=== PATIENT | female | born 1940 | race Hispanic/Latino ===

== ENCOUNTER 2020-06-09 09:10 | Outpatient (CLI) | payer MEDICARE, SELFPAY ==
[2020-06-09 09:26] LABS: Basophils Percent Auto 0.5 % (0.2-1.2); Eosinophils Absolute Auto 0.3 K/mm3 (0-0.3); Eosinophils Percent Auto 4.6 % (0-4.4); Hematocrit 43.8 % (37.0-47.0); Hemoglobin 14.4 g/dL (12.0-15.0); Immature Granulocyte Absolute 0.03 K/mm3 (0.00-0.031); Immature Granulocyte Percent A 0.5 % (0-0.5); Lymphocytes Absolute Auto 2.86 K/mm3 (0.9-3.2); Lymphocytes Percent Auto 45.2 % (18.3-44.2); Mean Corpuscular HGB Conc 32.9 g/dl (32-36); Mean Corpuscular Hemoglobin 28.1 pg (26-34); Mean Corpuscular Volume 85.4 fl (80-100); Mean Platelet Volume 10.2 fl (7.4-10.4); Monocytes Absolute Auto 0.5 K/mm3 (0.1-0.6); Monocytes Percent Auto 7.3 % (2.6-8.5); Neutrophils Absolute Auto 2.7 K/mm3 (1.3-6.7); Neutrophils Percent Auto 41.9 % (45.5-73.1); Platelet Count Result 235 k/mm3 (150-375); Red Blood Count 5.13 M/mm3 (4.2-5.4); Red Cell Distribution Width 14.4 % (11.5-14.5); White Blood Count 6.3 K/mm3 (4.5-10.0)
[2020-06-09 09:40] LABS: Alanine Aminotransferase 28 U/L (4-35); Albumin Level 4.1 g/dL (3.5-5.1); Alkaline Phosphatase 89 U/L (38-126); Anion Gap 4 mmol/L (8-16); Aspartate Amino Transferase 33 U/L (14-36); Bilirubin,Total 0.5 mg/dL (0.2-1.3); Blood Urea Nitrogen 18 mg/dL (7-17); Calcium 9.3 mg/dL (8.4-10.2); Carbon Dioxide 30 mmol/L (22-30); Chloride 103 mmol/L (98-107); Cholesterol 225 mg/dL (0-200); Estimated Glomerular Filt Rate > 60; Glucose 113 mg/dL (65-105); HDL Direct 53 mg/dL; Potassium 4.7 mmol/L (3.4-5.0); Sodium 137 mmol/L (137-145); Triglycerides 142 mg/dL (<150)
[2020-06-09 09:51] LABS: LDL Cholesterol Direct 148 mg/dL
[2020-06-09 10:21] LABS: Hemoglobin A1C 5.6 % (<5.7)
[2020-06-19 06:53] LABS: Vitamin D 1,25 (OH)2 Total 39 pg/mL (18-72); Vitamin D2 1,25 (OH)2 <8 pg/mL; Vitamin D3 1,25 (OH)2 39 pg/mL
== END 2020-06-09 09:11 | disposition home or self-care (01) ==
PROVIDERS: PCP Family Medicine; Visit Provider Family Medicine
DX: E55.9 Vitamin D deficiency, unspecified (principal); R73.09 Other abnormal glucose; E78.2 Mixed hyperlipidemia; M19.019 Primary osteoarthritis, unspecified shoulder
CPT/HCPCS: 36415; 80053; 80061; 82652; 83036; 85025

== ENCOUNTER 2020-07-25 08:41 | Outpatient (CLI) | payer MEDICARE, SELFPAY ==
--- NOTE | ~2020-07-25 | DEXA_ITS ---
Bone Density Report Name: Hortencia Chavez Age: 80 Sex: Female Ethnicity: White Date of : 1940 Indication: postmenopausal; height loss; hysterectomy; Referring Provider: NU CHRIS Study: Bone densitometry was performed. Exam Date: July 25, 2020 Accession number: [id number] Bone Density: Region BMD T-score Z-score Classification AP Spine (L1, L2) 0.935 -0.4 2.1 Normal Femoral Neck (Left) 0.849 0.0 2.3 Normal Total Hip (Left) 0.987 0.4 2.4 Normal Total Hip Bilateral Avg 0.903 -0.3 1.7 Normal Femoral Neck (Right) 0.789 -0.5 1.7 Normal Total Hip (Right) 0.818 -1.0 1.0 Normal World Health Organization criteria for BMD impression classify patients as: Normal (T-score at or above -1.0), Osteopenia (T-score between -1.0 and -2.5), or Osteoporosis (T-score at or below -2.5). 10-year Fracture Risk: FRAX not reported because: All T-scores for Spine Total, Hip Total, Femoral Neck at or above -1.0 Clinical Information Provided by Patient: Has used the following medications: Vitamin D, Calcium Has the following medical conditions: Hysterectomy Patient maximum height was 63 Menopause Age: 49 No regular weight bearing exercise Drinks caffeinated beverages Onset of menses at age 15 Number of children 1 Impression: The patient has normal bone mass. Discussion: BONE DENSITY IS ABOVE THE MINIMUM DESIRABLE LEVEL AT ALL SKELETAL SITES TESTED. This patient?s bone mineral density is above the minimum desirable level (T-score -1.0 or better) at all sites measured. The patient should follow a healthful lifestyle (good nutrition with adequate calcium and vitamin D, and appropriate weight-bearing exercise). Follow-Up: Consider repeating this study in 5 years or sooner if there is some new clinical indication. Reported by: GIOVANNI on 07/25/2020 9:16:00 AM. Reviewed, dictated and finalized at location AAgustin LEMUS
--- NOTE | ~2020-07-25 | MM_ITS ---
EXAMINATION: MM screening laci BI w luiza HISTORY: Screening TECHNIQUE: Craniocaudal and mediolateral oblique 3-D tomosynthesis images were obtained and synthetic 2-D images were generated. CAD analysis was submitted and interpreted. COMPARISON: Comparison to multiple prior studies sequentially, with oldest reviewed study dated 08/11. BREAST PARENCHYMAL COMPOSITION: There are scattered areas of fibroglandular density. FINDINGS: There are developing asymmetries in the medial aspect of both breasts. There is architectur al distortion in the outer aspect of the right breast from previous biopsy. IMPRESSION: 1. Developing bilateral breast asymmetries. 2. Additional mammographic views and possible breast ultrasound are recommended. BI-RADS Category 0: Incomplete: Needs additional imaging evaluation. Reviewed, dictated and finalized at location A. ACE INSTALLER HELPER IMPRESSION: 1. Developing bilateral breast asymmetries. 2. Additional mammographic views and possible breast ultrasound are recommended . BI-RADS Category 0: Incomplete: Needs additional imaging evaluation.
== END 2020-07-25 08:42 | disposition home or self-care (01) ==
LOC: ANHIMG 08:45
PROVIDERS: PCP Family Medicine; Visit Provider Family Medicine
DX: Z12.31 Encounter for screening mammogram for malignant neoplasm of breast (principal); Z78.0 Asymptomatic menopausal state; R92.8 Other abnormal and inconclusive findings on diagnostic imaging of breast
CPT/HCPCS: 77063; 77067; 77080

== ENCOUNTER 2020-08-22 12:44 | Outpatient (CLI) | payer MEDICARE, SELFPAY ==
--- NOTE | ~2020-08-22 | MMUS_ITS ---
EXAMINATION: MM diagnostic mammo BI, US breast BI limited HISTORY: Bilateral breast asymmetries on screening mammogram TECHNIQUE: Additional 3-D tomosynthesis images of the breasts were performed and synthetic 2-D images were generated. CAD analysis was submitted and interpreted. High resolution limited bilateral breast ultrasound was performed. COMPARISON: 07/25/2020, 11/07/2014, 01/25/2014, 08/23/2013, 08/11/2013 FINDINGS: MAMMOGRAPHIC FINDINGS: Right breast: There is a 5 mm oval, circumscribed, equal density mass in the middle third of the inne r breast at the 4:00 location 4 cm from the nipple. Left breast: There is a return to baseline appearance with spot compression of the left breast. ULTRASOUND: Right breast: There is a 4 mm cyst at the 2:00 location 3 cm from the nipple which may correlate with the mammographic finding in question. Left breast: There is an approximately 1.6 x 0.6 cm indistinct hyperechoic area in the left breast at the 10:00 location 6 cm from the nipple with some posterior acoustic shadowing but no evidence of in ternal vascularity. This could reflect minor breast trauma. IMPRESSION: 1. Probably benign bilateral findings of the breasts. 2. Recommend 6 month follow-up bilateral diagnostic mammogram and ultrasound if necessary. BI-RADS category 3, probably benign findings. Reviewed, dictated and finalized at location A. LIGHT INSPECTOR IMPRESSION: 1. Probably benign bilateral findings of the breasts. 2. Recommend 6 month follow-up bilateral diagnostic mammogram and ultrasound if necessary. BI-RADS category 3, probably benign findings.
== END 2020-08-22 12:45 | disposition home or self-care (01) ==
PROVIDERS: PCP Family Medicine; Visit Provider Physician Assistant
DX: R92.8 Other abnormal and inconclusive findings on diagnostic imaging of breast (principal)
CPT/HCPCS: 76642; 77066

== ENCOUNTER 2021-05-09 13:13 | Outpatient (CLI) | payer MEDICARE, SELFPAY ==
[2021-05-09 14:25] LABS: Basophils Percent Auto 0.6 % (0.2-1.2); Eosinophils Absolute Auto 0.2 K/mm3 (0-0.3); Eosinophils Percent Auto 3.6 % (0-4.4); Hematocrit 41.5 % (37.0-47.0); Hemoglobin 13.5 g/dL (12.0-15.0); Immature Granulocyte Absolute 0.02 K/mm3 (0.00-0.031); Immature Granulocyte Percent A 0.4 % (0-0.5); Lymphocytes Absolute Auto 2.15 K/mm3 (0.9-3.2); Lymphocytes Percent Auto 43.5 % (18.3-44.2); Mean Corpuscular HGB Conc 32.5 g/dl (32-36); Mean Corpuscular Hemoglobin 28.3 pg (26-34); Monocytes Absolute Auto 0.3 K/mm3 (0.1-0.6); Monocytes Percent Auto 6.9 % (2.6-8.5); Neutrophils Absolute Auto 2.2 K/mm3 (1.3-6.7); Platelet Count Result 209 k/mm3 (150-375); Red Blood Count 4.77 M/mm3 (4.2-5.4); Red Cell Distribution Width 13.9 % (11.5-14.5); White Blood Count 4.9 K/mm3 (4.5-10.0)
[2021-05-09 14:45] LABS: Alanine Aminotransferase 37 U/L (4-35); Albumin Level 4.4 g/dL (3.5-5.1); Alkaline Phosphatase 78 U/L (38-126); Anion Gap 10 mmol/L (8-16); Aspartate Amino Transferase 38 U/L (14-36); Bilirubin,Total 0.4 mg/dL (0.2-1.3); Blood Urea Nitrogen 18 mg/dL (7-17); Calcium 9.4 mg/dL (8.4-10.2); Carbon Dioxide 23 mmol/L (22-30); Chloride 105 mmol/L (98-107); Cholesterol 209 mg/dL (0-200); Estimated Glomerular Filt Rate > 60; Glucose 168 mg/dL (65-110); HDL Direct 52 mg/dL; Sodium 138 mmol/L (137-145); Triglycerides 150 mg/dL (<150); Uric Acid 5.3 mg/dL (2.5-7.5)
[2021-05-09 14:56] LABS: LDL Cholesterol Direct 141 mg/dL
== END 2021-05-09 13:14 | disposition home or self-care (01) ==
LOC: ANHLAB 13:16
PROVIDERS: PCP Family Medicine; Visit Provider Family Medicine
DX: E78.2 Mixed hyperlipidemia (principal); I10 Essential (primary) hypertension
CPT/HCPCS: 36415; 80053; 80061; 84550; 85025

== ENCOUNTER 2021-06-01 09:09 | Outpatient (CLI) | payer MEDICARE, SELFPAY ==
--- NOTE | ~2021-06-01 | US_ITS ---
US abdomen limited INDICATION: Abnormal levels of serum enzymes PROCEDURE: Realtime right upper abdominal ultrasound. COMPARISON: No prior studies for comparison. FINDINGS: The pancreas is normal without focal mass or pancreatic ductal dilation. Liver echotexture is increased, consistent with fatty infiltration. There is normal directional flow in the portal ve in. The gallbladder is normal without stones, gallbladder wall thickening or pericholecystic fluid. Comm on bile duct measures 5.9 mm. No sonographic Beckford's sign. IMPRESSION: 1: Hepatic steatosis. Reviewed, dictated and finalized at location A. PMENT OILER IMPRESSION: 1: Hepatic steatosis.
== END 2021-06-01 09:10 | disposition home or self-care (01) ==
LOC: ANHIMG 09:13
PROVIDERS: PCP Family Medicine; Visit Provider Nurse Practitioner Gerontology
DX: R74.8 Abnormal levels of other serum enzymes (principal); K76.0 Fatty (change of) liver, not elsewhere classified
CPT/HCPCS: 76705

== ENCOUNTER 2021-09-10 13:52 | Outpatient (CLI) | payer MEDICARE, SELFPAY ==
--- NOTE | 2021-09-10 14:04 | ECG_ITS ---
Measurements Intervals [place] Rate: 80 P: 63 RI: 139 QRS: 48 QRSD: 82 T: 49 QT: 366 QTc: 423 Interpretive Statements SINUS RHYTHM WITHIN NORMAL LIMITS NO PREVIOUS ECG AVAILABLE FOR COMPARISON Electronically Signed On 09-10-2021 14:36:00 CDT by Bogdan Greenwood M.D.
[2021-09-10 14:24] LABS: Basophils Percent Auto 0.5 % (0.2-1.2); Eosinophils Absolute Auto 0.2 K/mm3 (0-0.3); Eosinophils Percent Auto 2.4 % (0-4.4); Hematocrit 42.8 % (37.0-47.0); Hemoglobin 14.1 g/dL (12.0-15.0); Immature Granulocyte Absolute 0.02 K/mm3 (0.00-0.031); Immature Granulocyte Percent A 0.3 % (0-0.5); Lymphocytes Absolute Auto 2.43 K/mm3 (0.9-3.2); Lymphocytes Percent Auto 36.6 % (18.3-44.2); Mean Corpuscular HGB Conc 32.9 g/dl (32-36); Mean Corpuscular Hemoglobin 28.4 pg (26-34); Mean Corpuscular Volume 86.1 fl (80-100); Mean Platelet Volume 10.5 fl (7.4-10.4); Monocytes Absolute Auto 0.6 K/mm3 (0.1-0.6); Monocytes Percent Auto 9.5 % (2.6-8.5); Neutrophils Absolute Auto 3.4 K/mm3 (1.3-6.7); Neutrophils Percent Auto 50.7 % (45.5-73.1); Platelet Count Result 247 k/mm3 (150-375); Red Blood Count 4.97 M/mm3 (4.2-5.4); Red Cell Distribution Width 13.8 % (11.5-14.5); White Blood Count 6.6 K/mm3 (4.5-10.0)
== END 2021-09-10 13:53 | disposition home or self-care (01) ==
LOC: ANHSURGERY 13:57
PROVIDERS: PCP Family Medicine; Visit Provider Orthopaedic Surgery
DX: M25.511 Pain in right shoulder (principal); E78.5 Hyperlipidemia, unspecified; Z01.818 Encounter for other preprocedural examination
CPT/HCPCS: 36415; 85025; 87081; 93005

== ENCOUNTER 2021-10-10 16:02 | Observation (INO) | payer MEDICARE, SELFPAY ==
--- NOTE | 2021-09-10 14:05 | PC.NURSE ---
Report to the Outpatient Waiting Room, entrance under the green pavilion located off [facility], at time _0600_ on date _10/09/21_. OR Time: _0730__. - You and your visitor will be asked a series of questions to screen for COVID 19 for your protection. - A mask is required within the hospital. One visitor will be allowed to accompany the patient into the hospital. Patients visitor will be instructed to remain with patient at all times or leave the building. We will allow the visitor to come back to the postoperative area when patient is ready. Preoperative COVID Testing Requirements: NONE Patients may have clear liquids (water, carbonated beverages, clear teas, apple juice) until 3 hours prior to surgery (0430 AM) with a maximum of 20 ounces. - No food from midnight until time of surgery Take the following medications with a SIP of water the morning of surgery: _NONE_ Medications to discontinue per DR. LAMB - _NONE_ Medications to discontinue per ANESTHESIA - _NONE_ Please no make-up, nail thai, hairspray, perfume, deodorant, or body powder the day of surgery. No jewelry (including any body piercings) or valuables the day of surgery, leave them at home. Please take a shower or bath the night before, or the morning of, surgery with an antibacterial soap. Wear comfortable, loose fitting clothing. - Jewelry must be removed prior to entering the operating room. Rings and piercings that are not removed may be cut off. - The hospital will not accept responsibility for valuables. - Please leave all valuables, including medications, at home the day of surgery. If you are going home after surgery, a licensed vibratory pile driver must drive you home. - NO public transportation without another adult. - We recommend that an adult stay with you for 24 hours following discharge. - We also recommend that you do not drive, make important decision, drink alcoholic beverages, or take any drugs that were not prescribed by your health care provider for at least 24 hours after your discharge time. Follow any additional instructions given to you from your surgeon. Instructions given to ___PT and asked if any additional questions and then verbalized understanding. Patient advised to call surgeon office or pre surgery nurse liaisonSARITA [phone] if any additional questions.
[2021-09-10 14:25] VITALS: BP 142/80; PULSE 80; RESP 18; TEMP 36.7; O2SAT 98; BMI 29.0
--- NOTE | 2021-10-08 12:57 | WPDANESEPPF ---
Anes - Initial Pre Proc Eval Procedure: Operation Date: 10/09/21 07:30 Proposed Procedures p Right Reverse Total Shoulder Arthroplasty - Haris Ronquillo MD Date/Time: 10/08/21 12:57 Surgeon: Haris Ronquillo MD Pre Op Diagnosis: Prim O A Right Shoulder Patient Data Age: 81 Gender: F Height: 1.57 m Weight: 72 kg Last Vital Signs Temp 36.7 C 09/10/21 14:25 Pulse 80 09/10/21 14:25 Resp 18 09/10/21 14:25 BP 142/80 H 09/10/21 14:25 Pulse Ox 98 09/10/21 14:25 Allergies Allergy/AdvReac Type Severity Reaction Status Date / Time morphine Allergy Intermediate confusion Verified 10/09/21 06:13 and mouth swelling Penicillins Allergy Intermediate Swollen Verified 10/09/21 06:13 mouth Home Medications Medication Instructions Recorded Confirmed Type omeprazole 40 mg capsule,delayed 40 mg PO DAILY #90 cap 09/10/21 10/09/21 Rx release Patient hx anesthesia problems: none Family hx anesthesia problems: none Results Review: All pre-operative results and documents have been reviewed as part of the pre-operative evaluation. 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 GERD (gastroesophageal reflux disease) Hyperlipidemia Low back pain Osteoporosis screening Shoulder pain, right Surgical History Surgical History H/O breast biopsy History of hysterectomy (~11/1981) Hx of total knee arthroplasty (~06/2008) R - failed Family History Family History Father Cerebrovascular accident, Onset Age: 62 Patient's father is Social History Social History Social History: Smoking status: Never smoker Second hand tobacco smoke exposure: No Additional smoking assessment comments: PT DENIES ALL FORMS OF TOBACCO USE Alcohol intake: never Substance use: never Substance use type: does not use Living arrangements: with family Additional living arrangements comments: Pt lives with her daughter Gender identity (if verbalized by the patient): Female Sexual Orientation (if Verbalized by the Patient): Straight or Heterosexual Spiritual care concerns: No Anes - Eval Final PreProcedure Day of Procedure 10/08/21 12:57 Patient weight: overweight Heart: regular rate and rhythm Lungs: clear to auscultation and normal air movement Airway: Mallampati scale class II Neurological: alert and oriented Last oral intake: >/= 8 hours ASA classification: II Emergent: no Anesthetic plan: proceed Anesthesia type and monitoring: general ETT and standard monitoring Results Review: All pre-operative results and documents have been reviewed as part of the pre-operative evaluation. Informed Consent: The patient's anesthetic plan and its attendant risks and benefits were discussed with the patient/family/POA. Questions were solicited and answers provided to the satisfaction of the patient/family/POA.
--- NOTE | 2021-10-08 12:58 | WPDANESPNB ---
Anes - Peripheral Nerve Block Date/Time: 10/08/21 12:58 I have discussed with the patient/family/POA the placement of a peripheral nerve block for post-operative pain management, including associated risks, benefits, complications, and side effects. Alternative methods of post-operative analgesia were detailed. Questions were solicited and answers provided to the satisfaction of the patient/family/POA. Time-Out: A pre-procedural Time-Out was completed immediately before starting the procedure and confirmed: Patient Identification, Site, Procedure, Patient Position and the Availability of Requisite Equipment. Clinical Indications: Acute post-operative pain management requested by the operative surgeon. Nerve Block Insertion Note Anes-nerve block: interscalene right Patient position: supine Skin prep: chlorhexidine Needle: 22 gauge, stimulating, insulated echogenic needle. Needle length: 50 mm Technique: ultrasound Injectate: bupivacaine 0.5% with epi 5 mcg/ml (30cc- no epi) Observations: tolerated well Complications: none Procedure start time:: 723 Procedure end time:: 726
[2021-10-09] VITALS (12 sets, daily range): BP systolic 114–148; BP diastolic 47–67; PULSE 66–97; RESP 14–18; TEMP 35.9–37; O2SAT 94–100
[2021-10-09] MEDS: LACTATED RINGERS 1,000 ML 30 ML IV CONT ×2 (06:21→10:31)
[2021-10-09] MEDS: ACETAMINOPHEN 500 MG TABLET 1000 MG PO (06:38)
[2021-10-09] MEDS: TRANEXAMIC ACID 1,000MG/ISO100 1,000 MG/100 ML BAG 200 MG IVPB (06:44)
--- NOTE | 2021-10-09 07:19 | WPDHPUPDATE1 ---
History and Physical Update Update Date/Time: 10/09/21 07:19 History and Physical has been reviewed, including an updated exam of the patient. There are NO changes in the patient's condition. Risks, benefits, and alternatives have been discussed and questions answered. Patient agrees to proceed with procedure.
[2021-10-09] MEDS: ceFAZolin 2 GM/D5W 50 ML 2 GM/50 ML BAG IVPB ×2 (07:29→15:36)
[2021-10-09] MEDS: VANCOMYCIN HCL 1,000 MG VIAL 1000 MG TOPICAL (08:04)
--- NOTE | 2021-10-09 10:28 | W.PM.PROC2 ---
Procedure Note - Detailed Date of Procedure 10/09/21 Pre-op Diagnosis Osteoarthritis right shoulder Post-op Diagnosis Same Procedure Performed Reverse total shoulder arthroplasty, right. Surgeon Haris Ronquillo MD Customs Verifier Olivia Paris PA-C Anesthesia General and Regional (Interscalene block.) Indications Moderate progressive arthritis with history of rotator cuff disease. Progressive pain with ADL's and at night. Findings Small stature. Good bone quality. No significant deformity. Description of Procedure The patient was given an interscalene block in the preoperative area. Preoperative antibiotics were given. The patient was transferred to the operating room and a general anesthetic was administered. The beach chair position was used at 45 degrees. All bony prominences were padded. The head was carefully stabilized on the [employer] head trimmer. A sterile prep and drape was performed in the usual manner with ChloraPrep. A longitudinal incision was created at the anterior shoulder just lateral to the deltopectoral interval. Hydrogen peroxide was placed on the incision and then rinsed after one minute. Careful dissection was performed to expose the interval and protect the cephalic vein. The vein was retracted medially. The upper border of the pectoralis was released. Anterior circumflex vessel branches were suture ligated. The biceps was tenodesed. A subscapularis tenotomy was performed. The inferior capsule was released, exposing the humeral head. Osteophytes were removed. Care was taken to stay on bone to protect the axillary nerve. The anatomic head cut was taken with the oscillating saw. The guide pin was placed, central drilling performed, and the broach trial inserted. The neck anteversion and inclination were carefully assessed. The cut protector was placed, and attention was turned to the glenoid. Retractors were placed. Releases were carried out for exposure. The subscapularis was mobilized, the inferior capsule and long head of triceps released, and the superior and middle glenohumeral ligaments released as well. Labral tissue was resected as needed. The sizing template was used to assess the baseplate position low on the glenoid. A guide pin was placed. Minimal reaming was used to accomplish a flat surface without violating the subchondral bone. Version was corrected according to preoperative templating. The boss was drilled, and the real component was impacted into position. Supplemental locking screws were placed centrally, superiorly, and inferiorly. The glenosphere was impacted into the taper. The proximal humerus was reamed for the inset component. The humeral components were trialed. The real humeral stem, tray, and insert were impacted into position. The shoulder was copiously irrigated periodically with pulsatile lavage. The shoulder was reduced and stability confirmed. 1 gram of Vancomycin powder was placed in the joint. The subscapularis tenotomy was repaired. The biceps tenodesis was incorporated with the pectoralis tendon repair. The deltopectoral space was reapproximated with number 1 Vicryl. The remaining tissue was closed with 0 Quill and 2-0 Quill running suture and steri-strips. A sterile silver occlusive dressing and shoulder immobilizer were placed. The patient was transferred to the recovery room. Physician graduate research assistant, Olivia Paris PA-C, required for surgery; including patient positioning, draping, tissue retraction, maintaining instrument position, wound closure, and dressing placement. Implants Shoulder Innovations reverse TSA size 0 stem. +0 polyethylene insert. Standard baseplate. 33 +6 lateralized glenosphere. Estimated Blood Loss -100.0 Drains No Pathology None sent Complications No immediate complications Condition Stable Disposition PACU
--- NOTE | 2021-10-09 11:31 | PC.NURSE ---
This patient, Hortencia Chavez, was admitted to Medical Room 252-01. Patient/family oriented to hospital policies and general routines including ID bracelet, bed and alarms, visiting hours, pain management, procedures, bathroom and other care routines, personal items, smoking policy, room service/diet, and visiting hours. Information on how to activate the Rapid Response Team has been discussed. Patient/Family are encouraged to report perceived risks to care and to ask questions if they do not understand what they are told or what they should do.
[2021-10-09] MEDS: SODIUM CHLORIDE 0.9% IV 1,000 ML 125 ML IV CONT (11:56)
[2021-10-09] MEDS: MELOXICAM 7.5 MG TABLET PO (16:26)
[2021-10-09] MEDS: SENNA/DOCUSATE SODIUM TABLET 2 TAB PO (16:26)
[2021-10-09] MEDS: ASPIRIN 81 MG ENTERIC TABLET PO (16:26)
[2021-10-09] MEDS: oxyCODONE HCL (*CRX) 5 MG TAB IR 10 MG PO (20:22)
[2021-10-10] VITALS (8 sets, daily range): BP systolic 105–144; BP diastolic 45–57; PULSE 76–94; RESP 16–20; TEMP 36.4–36.9; O2SAT 92–97
--- NOTE | ~2021-10-10 | XR_ITS ---
EXAMINATION: XR shoulder RT min 2V EXAM DATE: 10/09/2021 10:17 INDICATION: Right shoulder arthroplasty. TECHNIQUE: Frontal and lateral projections of the right shoulder. Comparison is made to prior examin ation from 06/01/2021. FINDINGS: There is right shoulder reversed arthroplasty hardware in expected position. Small amount of postoperative subcutaneous gas and gas within the shoulder joint. Correlate with procedure note. IMPRESSION: Status post right shoulder arthroplasty. Reviewed, dictated and finalized at location B.
[2021-10-10] MEDS: ceFAZolin 2 GM/D5W 50 ML 2 GM/50 ML BAG IVPB ×2 (01:00→07:56)
[2021-10-10] MEDS: oxyCODONE HCL (*CRX) 5 MG TAB IR 10 MG PO ×3 (02:30→20:51)
--- NOTE | 2021-10-10 08:00 | PM.PNORT ---
Progress Note: A&P Assessment and Plan (1) Status post reverse total arthroplasty of right shoulder: Code(s): Z96.611 - Presence of right artificial shoulder joint Status: Acute Assessment and Plan: Postop day 1:Right reverse total shoulder. Patient was unable to urinate after surgery. After a bladder scan, Guzman catheter in place. Spoke with the nurse multiple times throughout the day. Will trial catheter removal today. Also she had trouble with pain control. Will need to stay another night for pain control and until she is able to void. Subjective Subjective Date/Time Seen: 10/10/21 08:00 Patient was having urinary issues yesterday and a Guzman catheter was placed. Patient having significant pain difficult to control. Exam Narrative: Normal weight 81 y/o Female. Resting comfortably in chair. Wearing sling. Dressing dry and intact with no drainage. Moderate swelling. No ecchymosis. No erythema. No hematoma. Range of motion limited due to pain. Neurologic status intact. No varicosities. Distal pulses palpable. Guzman catheter in place. Objective Data Vital Signs Vital Signs: Vital Signs - 24 hr 10/10/21 09:56 10/10/21 14:15 10/10/21 17:53 Temperature 98 F 98.4 F 98.1 F Pulse Rate 86 94 90 Respiratory Rate 20 16 18 Blood Pressure 139/50 L 144/47 H 122/45 L Pulse Oximetry 93 92 94 10/10/21 20:00 10/10/21 20:58 10/10/21 21:33 Temperature 98.1 F Pulse Rate 90 86 Respiratory Rate 18 18 Blood Pressure 132/47 L Pulse Oximetry 94 95 95 10/11/21 02:00 10/11/21 06:02 Temperature 97.8 F 97.7 F Pulse Rate 100 95 Respiratory Rate 18 18 Blood Pressure 134/44 L 108/45 L Pulse Oximetry 96 97 Intake/Output Intake/Output: Intake & Output 10/08/21 10/09/21 10/10/21 10/11/21 23:59 23:59 23:59 23:59 Intake Total 2080 1240 Output Total 750 1450 Balance 1330 -210 Meds/Results Medications: Active Medications Generic Name Dose Route Start Last Admin Trade Name Freq PRN Reason Stop Dose Admin Acetaminophen 1,000 mg 10/09/21 11:06 Acetaminophen 500 Mg Tablet PO Q6H PRN Pain Rated 1-3 Aspirin 81 mg 10/09/21 17:00 10/10/21 16:19 Aspirin 81 Mg Enteric Tablet PO 81 mg BID ALLA Administration Cyclobenzaprine HCl 10 mg 10/09/21 11:06 Cyclobenzaprine Hcl 10 Mg Tablet PO Q8H PRN Spasms Diphenhydramine HCl 25 mg 10/09/21 11:06 Diphenhydramine Hcl Inj 50 Mg/Ml Vial IV PUSH Q6H PRN Itching Meloxicam 7.5 mg 10/09/21 17:00 10/10/21 16:19 Meloxicam 7.5 Mg Tablet PO 7.5 mg BID ALLA Administration Naloxone HCl 0.1 mg 10/09/21 11:06 Naloxone Hcl 0.4 Mg/Ml Vial IV PUSH Q2M PRN Opiate Reversal Ondansetron HCl 4 mg 10/09/21 11:06 10/10/21 13:21 Ondansetron Inj 4 Mg/2 Ml Vial IV PUSH 4 mg Q4H PRN Administration Nausea And Vomiting Oxycodone HCl 5 mg 10/09/21 11:06 Oxycodone Hcl (*Crx) 5 Mg Tab Ir PO Q4H PRN Pain Rated 4-6 Oxycodone HCl 10 mg 10/09/21 11:06 10/10/21 20:51 Oxycodone Hcl (*Crx) 5 Mg Tab Ir PO 10 mg Q4H PRN Administration Pain Rated 7-10 Pantoprazole Sodium 40 mg 10/10/21 17:00 10/10/21 16:20 Pantoprazole 40 Mg Tablet PO 40 mg BID ALLA Administration Polyethylene Glycol 17 gm 10/10/21 09:00 10/10/21 08:09 Polyethylene Glycol 3350 17 Gm Powd.Pack PO 17 gm QAM ALLA Administration Senna/Docusate Sodium 2 tab 10/09/21 17:00 10/10/21 16:19 Senna/Docusate Sodium Tablet PO 2 tab BID ALLA Administration Radiology Results: ITS Impressions Shoulder X-Ray 10/09/21 10:18 IMPRESSION: Status post right shoulder arthroplasty.
[2021-10-10] MEDS: MELOXICAM 7.5 MG TABLET PO ×2 (08:09→16:19)
[2021-10-10] MEDS: ASPIRIN 81 MG ENTERIC TABLET PO ×2 (08:09→16:19)
[2021-10-10] MEDS: polyethylene glycoL 3350 17 GM POWD.PACK PO (08:09)
[2021-10-10] MEDS: SENNA/DOCUSATE SODIUM TABLET 2 TAB PO ×2 (08:09→16:19)
[2021-10-10] MEDS: ONDANSETRON INJ 4 MG/2 ML VIAL IV PUSH (13:21)
--- NOTE | 2021-10-10 15:04 | PC.NURSE ---
Called Dr. Ronquillo office to inform that patients blood pressure was 144/47, was told to check again in 30min and Dimas the PA will call me back. Checked BP and was 142/47. Awaiting call from PA.
[2021-10-10] MEDS: PANTOPRAZOLE 40 MG TABLET PO (16:20)
--- NOTE | 2021-10-10 17:38 | PC.NURSE ---
Patient has not voided since romo was removed this morning. Dr. Ronquillo new order to bladder scan, and either straight cath, then straight cath PRN throughout the night or to insert romo cath, whichever the patient is ok with.
--- NOTE | 2021-10-10 18:23 | PC.NURSE ---
Patient bladder scanned 435ml, used restroom voided 150ml, post bladder scan was 250. Patient requests to hold off on straight cath and catheter because feels she may be able to void more after drinking more water and may not need either.
[2021-10-11 02:00] VITALS: BP 134/44; PULSE 100; RESP 18; TEMP 36.6; O2SAT 96
[2021-10-11 06:02] VITALS: BP 108/45; PULSE 95; RESP 18; TEMP 36.5; O2SAT 97
--- NOTE | 2021-10-11 07:36 | PM.DS ---
DS: Admitting Diagnosis Discharge Date 10/11/21 Admitting Diagnosis Right shoulder OA. DS: Discharge Diagnosis Discharge Diagnosis (1) Status post reverse total arthroplasty of right shoulder: Code(s): Z96.611 - Presence of right artificial shoulder joint Status: Acute Assessment and Plan: Postop day 1: Right reverse total shoulder arthroplasty. Patient tolerated procedure well. Did have urinary issues, a Guzman catheter was inserted, and she was unable to void on her own until last evening. Did have some pain control issues also. Pain manageable with pain medication today. No numbness or tingling. We had a lengthy discussion regarding postoperative wound care, limitations, expectations, and exercises. Patient shows good understanding. He has had initial physical therapy and is tolerating it well. DVT prophylaxis: 81 mg baby aspirin b.i.d. for 14 days. Short frequent walks. Compression socks. Pain medication: Percocet. Meloxicam. Patient has followup appointment with Dr. Ronquillo in 3 weeks. DS: Summary Hospital Course Hospital Course: Has had initial PT/OT. Had issues urinating and Guzman was placed. Was able to void on her own last night. Status at Discharge Functional status at discharge: independent ambulation Overall status at discharge: patient is progressing back to baseline Time Spent with Patient Time attestation: Total time spent providing and/or coordinating discharge services: Exam Narrative: Normal weight 81 y/o Female. Resting comfortably in chair. Wearing sling. Dressing dry and intact with no drainage. Moderate swelling. No ecchymosis. No erythema. No hematoma. Range of motion limited due to pain. Neurologic status intact. No varicosities. Distal pulses palpable. Discharge Plan Discharge Attending physician on discharge: Haris Ronquillo Discharging Clinician: Wellington Anticipated Discharge Date/Time: 10/11/21 07:31 Patient Disposition: Home, Self-Care Activity: may shower Diet: as tolerated Wound Care Instructions: follow printed instructions Discharge Instructions: See green instruction sheet. Stand Alone Forms: General Discharge Instructions Follow-up/Referrals: Olivia Paris PA [Physician Terrapin Fisher] - Discharge Medications: New meloxicam 15 mg tablet 15 mg PO DAILY Qty: 30 RF: 0 oxycodone-acetaminophen 5-325 mg tablet 1 - 2 tablet PO Q4-6H MDD 6 PRN (Reason: pain) Qty: 30 RF: 0 aspirin 81 mg tablet,delayed release (DR/EC) 81 mg PO BID 14 Days Qty: 28 RF: 0 Continued omeprazole 40 mg capsule,delayed release(DR/EC) 40 mg PO DAILY Qty: 90 RF: 3 Date of admission: 10/10/21 16:02 Primary Care Provider: Ольга Cotton Admitting Provider: Haris Ronquillo Attending physician on admission: Haris Ronquillo Condition: Stable
[2021-10-11] MEDS: polyethylene glycoL 3350 17 GM POWD.PACK PO (09:41)
[2021-10-11] MEDS: SENNA/DOCUSATE SODIUM TABLET 2 TAB PO (09:45)
[2021-10-11] MEDS: PANTOPRAZOLE 40 MG TABLET PO (09:47)
[2021-10-11] MEDS: ASPIRIN 81 MG ENTERIC TABLET PO (09:47)
[2021-10-11] MEDS: MELOXICAM 7.5 MG TABLET PO (09:48)
--- NOTE | 2021-10-11 10:06 | PC.NURSE ---
On 10/11/21, the students, [Trini Jesus, Shakeel Lozano], provided care and completed [facility] documentation on this patient. I have reviewed the students' documentation and agree with the findings.
[2021-10-11 10:15] VITALS: BP 127/51; PULSE 93; RESP 16; TEMP 36.7; O2SAT 97
== END 2021-10-11 11:29 | disposition home or self-care (01) ==
LOC: ANHSURGERY 16:04 → ANH2MED 16:04
PROVIDERS: Admitting Provider Orthopaedic Surgery; PCP Family Medicine; Visit Provider Orthopaedic Surgery
PROC: (CPT 23472; principal; 2021-10-09 07:30)
DX: M19.011 Primary osteoarthritis, right shoulder (principal); G89.18 Other acute postprocedural pain; K21.9 Gastro-esophageal reflux disease without esophagitis; E78.5 Hyperlipidemia, unspecified; M54.50 Low back pain, unspecified; R26.9 Unspecified abnormalities of gait and mobility; R39.198 Other difficulties with micturition; T84.09 Other mechanical complication of internal joint prosthesis
CPT/HCPCS: 23472; 64415; 36415; 73030; 86850; 86900; 86901; 97110; 97161; 97165; 97530; 97535; A4565; A9270; G0378; J0131; J0171; J0690; J1885; J2250; J2405; J2704; J2795; J3010; J3370; J7030; J7120

== ENCOUNTER 2022-09-03 10:11 | Outpatient (CLI) | payer MEDICARE, SELFPAY ==
[2022-09-03 10:32] LABS: Basophils Absolute Auto 0.1 K/mm3 (0.0-0.1); Basophils Percent Auto 0.8 % (0.2-1.2); Eosinophils Absolute Auto 0.3 K/mm3 (0-0.3); Eosinophils Percent Auto 4.4 % (0-4.4); Hematocrit 42.2 % (37.0-47.0); Hemoglobin 13.7 g/dL (12.0-15.0); Immature Granulocyte Absolute 0.01 K/mm3 (0.00-0.031); Immature Granulocyte Percent A 0.2 % (0-0.5); Lymphocytes Absolute Auto 2.52 K/mm3 (0.9-3.2); Lymphocytes Percent Auto 40.6 % (18.3-44.2); Mean Corpuscular HGB Conc 32.5 g/dl (32-36); Mean Corpuscular Volume 86.3 fl (80-100); Mean Platelet Volume 10.4 fl (7.4-10.4); Monocytes Absolute Auto 0.5 K/mm3 (0.1-0.6); Monocytes Percent Auto 7.3 % (2.6-8.5); Neutrophils Absolute Auto 2.9 K/mm3 (1.3-6.7); Neutrophils Percent Auto 46.7 % (45.5-73.1); Platelet Count Result 217 k/mm3 (150-375); Red Blood Count 4.89 M/mm3 (4.2-5.4); Red Cell Distribution Width 14.6 % (11.5-14.5); White Blood Count 6.2 K/mm3 (4.5-10.0)
[2022-09-03 10:43] LABS: Alanine Aminotransferase 40 U/L (6-35); Albumin Level 4.3 g/dL (3.5-5.1); Alkaline Phosphatase 84 U/L (38-126); Anion Gap 7 mmol/L (8-16); Aspartate Amino Transferase 39 U/L (14-36); Bilirubin,Total 0.7 mg/dL (0.2-1.3); Blood Urea Nitrogen 17 mg/dL (7-17); Calcium 8.9 mg/dL (8.4-10.2); Carbon Dioxide 24 mmol/L (22-30); Chloride 102 mmol/L (98-107); Cholesterol 237 mg/dL (0-200); Estimated Glomerular Filt Rate > 60; Glucose 99 mg/dL (65-110); HDL Direct 49 mg/dL; Potassium 4.1 mmol/L (3.4-5.0); Sodium 133 mmol/L (137-145); Triglycerides 139 mg/dL (<150)
[2022-09-03 10:54] LABS: LDL Cholesterol Direct 139 mg/dL
== END 2022-09-03 10:12 | disposition home or self-care (01) ==
PROVIDERS: PCP Family Medicine; Visit Provider Family Medicine
DX: E78.2 Mixed hyperlipidemia (principal)
CPT/HCPCS: 36415; 80053; 80061; 85025

== ENCOUNTER 2023-03-29 08:16 | Outpatient (CLI) | payer MEDICARE, SELFPAY ==
--- NOTE | ~2023-03-29 | DEXA_ITS ---
Bone Density Report Name: BERNIE TREJO Age: 83 Sex: Female Ethnicity: White Date of : 1940 Indication: postmenopausal; screening for osteoporosis; height loss; hysterectomy; Referring Provider: NU CHRIS Study: Bone densitometry was performed. Exam Date: March 29, 2023 Accession number: [id number] Bone Density: Region BMD T-score Z-score Classification AP Spine(L1-L4) 1.207 1.5 4.2 Normal Femoral Neck (Left) 0.794 -0.5 1.9 Normal Total Hip (Left) 0.939 0.0 2.1 Normal Femoral Neck (Right) 0.749 -0.9 1.5 Normal Total Hip (Right) 0.813 -1.1 1.1 Osteopenia Total Hip Mean 0.876 -0.6 1.6 Normal World Health Organization criteria for BMD impression classify patients as: Normal (T-score at or above -1.0), Osteopenia (T-score between -1.0 and -2.5), or Osteoporosis (T-score at or below -2.5). 10-year Fracture Risk(1): Major Osteoporotic Fracture 11% Hip Fracture 2.3% Reported Risk Factors: [place] (), Neck BMD=0.749, BMI=28.7 (1) FRAX(R) Version 3.08. Fracture probability calculated for an untreated patient. Fracture probability may be lower if the patient has received treatment. Clinical Information Provided by Patient: Has used the following medications: Vitamin D, Calcium Has the following medical conditions: Hysterectomy Patient maximum height was 63 Menopause Age: 49 Does not regularly consume dairy products Drinks caffeinated beverages Onset of menses at age 14 Number of children 1 Impression: The patient has low bone mass, based on the Right Total Hip T-score. The patient has an estimated ten-year risk of hip fracture of 2.3% and an estimated ten-year risk of major fracture of 11%, based on the WHO FRAX algorithm. Discussion: BONE DENSITY IS LOW AT ONE OR MORE SKELETAL SITES. This patient's lowest T-score is low at one or more skeletal sites. It meets the World Health Organization's (WHO) criteria for ?low bone mass? (T-score between -1.0 and -2.5). The patient's 10-year risk of fracture as calculated by FRAX is less than the threshold where pharmacological therapy is recommended by the National Osteoporosis Foundation (NOF). However, all treatment decisions require clinical judgment and consideration of individual patient factors, including patient preferences, comorbidities, previous drug use, risk factors not captured in the FRAX model (e.g., frailty, falls, vitamin D deficiency, increased bone turnover, interval significant decline in bone density) and possible under or overestimation of fracture risk by FRAX. The patient should follow a healthful lifestyle (good nutrition with adequate calcium and vitamin D, and appropriate weight-bearing exercise). Follow-Up: Consider repeating this study in 2 to 3 years to reassess this patient's
--- NOTE | ~2023-03-29 | MM_ITS ---
EXAMINATION: MM screening laci BI w luiza HISTORY: Screening mammogram TECHNIQUE: Craniocaudal and mediolateral oblique 3-D tomosynthesis images were obtained and synthetic 2-D images were generated. CAD analysis was submitted and interpreted. COMPARISON: 08/22/2020, 07/25/2020 BREAST PARENCHYMAL COMPOSITION: There are scattered areas of fibroglandular density. FINDINGS: There is unchanged mild architectural distortion at the site of the previous excisional rig ht breast biopsy. No suspicious mass, calcification, or architectural distortion are identified in ei ther breast to suggest malignancy. There has been no suspicious interval change. IMPRESSION: 1. No mammographic evidence of malignancy. 2. Recommend routine screening mammography in one year. BI-RADS Category 2: Benign finding(s). Reviewed, dictated and finalized at location A.
== END 2023-03-29 08:17 | disposition home or self-care (01) ==
LOC: ANHIMG 08:18
PROVIDERS: PCP Family Medicine; Visit Provider Family Medicine
DX: Z12.31 Encounter for screening mammogram for malignant neoplasm of breast (principal); Z78.0 Asymptomatic menopausal state; M85.851 Other specified disorders of bone density and structure, right thigh
CPT/HCPCS: 77063; 77067; 77080

== ENCOUNTER 2023-06-13 12:54 | Outpatient (CLI) | payer MEDICARE, SELFPAY ==
[2023-06-13 14:40] LABS: Alanine Aminotransferase 76 U/L (6-35); Albumin Level 3.9 g/dL (3.5-5.1); Alkaline Phosphatase 87 U/L (38-126); Anion Gap 7 mmol/L (8-16); Aspartate Amino Transferase 82 U/L (14-36); Bilirubin,Total 0.4 mg/dL (0.2-1.3); Blood Urea Nitrogen 17 mg/dL (7-17); Calcium 9.2 mg/dL (8.4-10.2); Carbon Dioxide 27 mmol/L (22-30); Chloride 106 mmol/L (98-107); Estimated Glomerular Filt Rate > 60; Glucose 76 mg/dL (65-110); Sodium 140 mmol/L (137-145)
== END 2023-06-13 12:55 | disposition home or self-care (01) ==
LOC: ANHLAB 12:57
PROVIDERS: PCP Family Medicine; Visit Provider Family Medicine
DX: E87.1 Hypo-osmolality and hyponatremia (principal)
CPT/HCPCS: 36415; 80053

== ENCOUNTER 2023-08-18 13:24 | Outpatient (CLI) | payer MEDICARE, SELFPAY ==
[2023-08-18 14:23] LABS: Alanine Aminotransferase 592 U/L (6-35); Aspartate Amino Transferase 432 U/L (14-36)
== END 2023-08-18 13:25 | disposition home or self-care (01) ==
PROVIDERS: PCP Family Medicine; Visit Provider Physician Assistant
DX: R74.8 Abnormal levels of other serum enzymes (principal)
CPT/HCPCS: 36415; 84450; 84460

== ENCOUNTER 2023-08-29 08:15 | Outpatient (CLI) | payer MEDICARE, SELFPAY ==
--- NOTE | ~2023-08-29 | US_ITS ---
EXAMINATION: US abdomen limited DATE: 08/29/2023 09:23 INDICATION: Transaminitis TECHNIQUE: Multiple grayscale and Doppler ultrasound images of the abdomen were obtained. COMPARISON: 06/01/2021 FINDINGS: The pancreatic head and body are normal in appearance. The pancreatic tail is not visualized. The vi sualized proximal to mid abdominal aorta and inferior vena cava are normal. Liver has normal contour, with a smooth surface. There is increased parenchymal echogenicity and coarsened echotexture consist ent with diffuse hepatic steatosis. No liver lesion identified. No intrahepatic biliary duct dilatio n suspected. Portal venous flow was seen in the hepatopetal, normal direction and has normal Doppler waveform. The gallbladder is normal in appearance. There is no cholelithiasis. The common bile duct measures 6 mm, which is normal. Sonographic Beckford sign was reported as negative by the party bus driver. IMPRESSION: 1. Diffuse hepatic steatosis. Otherwise normal right upper quadrant ultrasound. Reviewed, dictated and finalized at location B. ERCIAL STRIPPER
== END 2023-08-29 08:16 | disposition home or self-care (01) ==
LOC: ANHIMG 08:19
PROVIDERS: PCP Family Medicine; Visit Provider Family Medicine
DX: K76.0 Fatty (change of) liver, not elsewhere classified (principal); R74.8 Abnormal levels of other serum enzymes
CPT/HCPCS: 76705

== ENCOUNTER 2023-10-10 09:39 | Outpatient (CLI) | payer MEDICARE, SELFPAY ==
--- NOTE | ~2023-10-10 | XR_ITS ---
EXAM: XR shoulder RT min 2V DATE: 10/10/2023 09:55 HISTORY: SHOULDER REPLACEMENT X2 YRS AGO, PERSISTENT PAIN SINCE SURG . COMPARISON: 04/11/2023, images only. FINDINGS: Uncomplicated appearing right shoulder and posterior hardware. Slightly decreased minerali zation. No fracture or dislocation. No lytic or blastic lesion. Mild AC joint hypertrophy. No erosion or periosteal change. Soft tissues within normal limits. IMPRESSION: No acute osseous finding in the right shoulder. No radiographic evidence of hardware rela william complication. Reviewed, dictated and finalized at location K. IMPRESSION: No acute osseous finding in the right shoulder. No radiographic tao dence of hardware related complication.
== END 2023-10-10 09:40 | disposition home or self-care (01) ==
PROVIDERS: Visit Provider Orthopaedic Surgery
DX: Z96.611 Presence of right artificial shoulder joint (principal)
CPT/HCPCS: 73030

== ENCOUNTER 2024-12-01 10:18 | Outpatient (CLI) | payer MEDICARE, SELFPAY ==
--- OUTSIDE RECORDS SUMMARY | 2024-12-01 10:30 | XMS_ITS | Clinical Summary ---
Author Organization [facility] Address [address] [place] [address] Care Team Providers Care Social Economist Name Role Phone Ольга Cotton MD Primary Care Provider Jesus gutierrez Source Comments [facility],non-owned Affiliates and Associated Physician Practices is amultiple site organization consisting of ambulatory clinics and hospital sitesin [place], [place], [place] and [place]. This disclosure is being madepursuant to the Care Everywhere program and may not contain all information available regarding this patient. Last updated 18.[facility] Allergies Active Allergy Reactions Criticality Noted Date Comments Morphine Urticaria Medium 07/14/2017 Penicillins Itching Medium 07/14/2017 Medications * Be aware that medications may not be up to date on this document. Alwaysverify current medications with the patient. citalopram (CELEXA) 40 MG tablet Take 40 mg by mouth once daily Active Multiple Vitamins-Mineral s (MULTI COMPLETE PO) Take by mouth once daily Active Social History Tobacco Use Types Packs/Day Years Used Date Smoking Tobacco: Never Smokeless Tobacco: Never Alcohol Use Standard Drinks/Week Comments No 0 (1 standard drink = 0.6 oz pur e alcohol) occa Comments Unknown Sex and Gender Information Value Date Recorded Sex Assigned at Not on file Legal Sex Female 8:13 AM HULL BUILDER Gender Identity Not on file Sexual Orientation Not on file Last Filed Vital Signs Vital Sign Reading Time Taken Comments Blood Pressure 117/57 07/15/2017 11:46 AM HULL BUILDER Pulse 74 07/15/2017 11:46 AM HULL BUILDER Temperature 36.6 C (97.8 F) 07/15/2017 9:51 AM HULL BUILDER Respiratory Rate 16 07/15/2017 11:46 AM HULL BUILDER Oxygen Saturation 97% 07/15/2017 11:46 AM HULL BUILDER Inhaled Oxygen Concentration - - Weight 67.1 kg (148 lb) 07/15/2017 9:51 AM HULL BUILDER Height 157.5 cm (5' 2) 07/15/2017 9:51 AM HULL BUILDER Body Mass Index 27.07 07/15/2017 9:51 AM HULL BUILDER Plan of Treatment Health Maintenance Due Date Last Done Comments BONE DENSITY TESTING 1940 DTAP/TDAP/TD VACCINES (1 - Tdap) 02/18/1960 PNEUMOCOCCAL VACCINE 50+ (1 of 1 - PCV) 1991 ZOSTER VACCINE (1 of 2) 1991 Respiratory Syncytial Virus (RSV) Vaccine Pt: or over 60 yrs (1 - 1-dose 75+ series) 02/18/2016 COVID-19 VACCINE ( - 2023-2 5 season) 2024 DEPRESSION SCREENING 06/30/2024 INFLUENZA VACCINE (Season Ended) 2025 HEPATITIS B VACCINE Aged Out No longe r eligible based on patient's age to complete this topic HIB VACCINE Aged Out No longer eligi ble based on patient's age to complete this topic HPV VACCINE Aged Out No longer eligi ble based on patient's age to complete this topic MENINGOCOCCAL (Group B) VACC INE SHARED DECISION-MAKING Aged Out No longer eligibl e based on patient's age to complete this topic MENINGOCOCCAL GROUPS A/C/Y/W VACCINE Aged Out No longer eligible b ased on patient's age to complete this topic Medical Devices Implanted Type Area Philosophy Instructor Device Identifier Shelf Expiration Date Model / Serial / Lot Lens Iol C Hpt Bcnvx Tecnis Protec Implanted:Qty: 1 on 07/15/2017 by Villa Magallanes MD at [facility] [employer] 02/06/2020 [id number] / / Insurance MEDICARE MEDICO Care Teams Social Economist Relationship Specialty Start Date End Date Ольга Cotton MD [address] [place] [address] PCP - General Family Medicine 07/15/17
--- OUTSIDE RECORDS SUMMARY | 2024-12-01 10:30 | XMS_ITS | Continuity of Care Document ---
Author Organization [facility] Address [address] [place] [address] Phone Care Team Providers Care Physician Obstetrician Name Role Phone Tal Retana MD Unavailable Unavailable Allergies, Adverse Reactions, Alerts Substance Reaction Status Criticality No Known Allergies Active No Inform ation Medications Medication Instructions Dosage Effective Dates (start - stop) Status Comments meloxicam 15 mg tablet take 1 tablet by oral route every day 15 MG - Active sertraline 50 mg tablet take 1 tablet by oral route every day 50 MG - Active Procedures Procedure Date Refraction Eye Exam, New Patient Advance Directives Directive Yes / No Effective Date File Name No Information Encounters Encounter Description Practice Location Reason(s) For Visit Diagnoses Date Provider Providers Copied on Encounter [facility], [address] [place] [address] [address], [place], [place], [id number], [place] tel:[phone] SEC Marcelino POWELL Professional Dry eyes (chief complaint) Dry eyes, bilateralNucle ar sclerotic cataract of both eyes [address] [facility] [address], [place], [place], [id number], [place]. tel:[phone] Referring Provider: Tal Carty, [address] [facility] [address], [place], [address] . tel:[phone] [facility], [address] [place] [address] [address], [place], [place], [id number], [place] tel:[phone] SEC Marcelino [place] Professional No Information [address]. [address] [facility], [address], [place], [place], [address], [place]. tel:[phone] Family History Family Member Type Diagnosis Age At Onset No Information Payers Payer name Insurance type Covered alliance party ID Authoriza tion(s) Medicare [facility] [id number] [employer] Insurance CI [id number] Social History Type Description Quantity Date Captured Comments Alcohol Use Details No Caffeine Use Details Tobacco Use Status No Information Smoking Status Never smoker Sex Female Chief Complaint And Reason For Visit From encounter dated '05/04/2015 08:30'. Dry eyes (chief complaint). Description: The 75 year old female presents for a complete eye exam OU. Patient c/o dry eyes ou. Patient denies any changes in vision but states wants a good eyeexam. Reason For Referral Reason For Referral No Information History Of Present Illness Encounter Date Complaint History Of Prese nt Illness Dry eyes The 75 year old female presents for a complete eye exam OU. Patient c/o dry eyes ou. Patient denies any changes in vision but states wants a good eye exam. Functional Status Date Functional Assessmen t No Information Instructions Date Instruction Additional Infor matsam Impression/Plan - Di scussed cataracts with pt and treatment options. pt also understands at this time vision does not qualify to have CE with insurance coverage. information given to pt for review, and instructed to return sooner if vision worsens. Recommend artificial tears for dry eyes, use humidifier in home during winter months. Pt understands as cataract progressives rx for glasses will change. Rx for glasses given. Return in 1 year for complete exam or sooner with any problems. Follow up - Return i n 1 year with Tal Retana M.D. for Complete Exam. Assessments Type Assessment Date assessment Dry eyes, bilateral assessment Nuclear sclerotic cataract of jackelin th eyes Patient Care Teams Name Effective Dates (start - stop) Status Members No Information
[2024-12-01 10:52] LABS: Hematocrit 42.7 % (37.0-47.0); Mean Corpuscular HGB Conc 32.8 g/dl (32-36); Mean Corpuscular Hemoglobin 27.9 pg (26-34); Mean Corpuscular Volume 85.1 fl (80-100); Mean Platelet Volume 11.6 fl (7.4-10.4); Platelet Count Result 215 k/mm3 (150-375); Red Blood Count 5.02 M/mm3 (4.2-5.4); Red Cell Distribution Width 14.3 % (11.5-14.5); White Blood Count 7.6 K/mm3 (4.5-10.0)
[2024-12-01 11:10] LABS: Alanine Aminotransferase 44 U/L (6-35); Albumin Level 4.3 g/dL (3.5-5.1); Alkaline Phosphatase 84 U/L (38-126); Anion Gap 8 mmol/L (4-12); Aspartate Amino Transferase 51 U/L (14-36); Bilirubin,Total 0.6 mg/dL (0.2-1.3); Blood Urea Nitrogen 28 mg/dL (7-17); Calcium 9.5 mg/dL (8.4-10.2); Carbon Dioxide 23 mmol/L (22-30); Chloride 105 mmol/L (98-107); Estimated Glomerular Filt Rate > 60; Glucose 119 mg/dL (65-110); Potassium 4.7 mmol/L (3.4-5.0); Sodium 136 mmol/L (137-145); Total Protein 7.5 g/dL (6.3-8.2)
[2024-12-01 14:47] LABS: Folic Acid > 20.0 ng/mL (2.76->20)
== END 2024-12-01 10:19 | disposition home or self-care (01) ==
LOC: ANHLAB 10:23
PROVIDERS: PCP Family Medicine; Visit Provider Physician Assistant Medical
DX: R74.8 Abnormal levels of other serum enzymes (principal); R55 Syncope and collapse; Z00.00 Encounter for general adult medical examination without abnormal findings; R53.83 Other fatigue
CPT/HCPCS: 36415; 80053; 82607; 82746; 84443; 85027

== ENCOUNTER 2025-01-11 09:53 | Outpatient (CLI) | payer MEDICARE, SELFPAY ==
--- NOTE | ~2025-01-11 | CT_ITS ---
Non-contrast Head CT History: Syncope Technique: Axial non-contrast imaging of the brain was performed. Dose reduction technique was used on this scan by utilizing automated exposure control and iterative reconstruction technique. The dose -length product (DLP) was 529.67 mGy-cm. Findings: There is no evidence of intracranial hemorrhage, mass lesion, or acute infarct. Brain par enchyma appears normal. The ventricles and subarachnoid spaces are normal in size. The calvarium ap pears normal. The visualized paranasal sinuses and mastoid air cells are clear. Impression: No significant abnormality seen. Reviewed, dictated and finalized at location . Impression: No significant abnormality seen.
--- OUTSIDE RECORDS SUMMARY | 2025-01-11 10:05 | XMS_ITS | Encounter Summary ---
Author Organization [facility] Address [address] [place] [address] Care Team Providers Care Tutoring Assistant Name Role Phone Unavailable Primary Care Provider Unavailabl e Encounter Details Date Type Department Care Team (Late st Contact Info) Description 04/25/2017 Abstract [facility] CONVERSION [address] [place] [address] , Generic Conversion, Social History Tobacco Use Types Packs/Day Years Used Date Smoking Tobacco: Never Assessed Comments Unknown Sex and Gender Information Value Date Recorded Sex Assigned at Not on file Legal Sex Female 1:58 PM CDT Gender Identity Not on file Sexual Orientation Not on file documented as of this encounter Plan of Treatment Not on file documented as of this encounter Visit Diagnoses Not on filedocumented in this encounter
--- OUTSIDE RECORDS SUMMARY | 2025-01-11 10:05 | XMS_ITS | Clinical Summary ---
Author Organization [facility] Address [address] [place] [address] Care Team Providers Care Editorial Manager Name Role Phone Ольга Cotton MD Primary Care Provider Jesus gutierrez Source Comments [facility],non-owned Affiliates and Associated Physician Practices is amultiple site organization consisting of ambulatory clinics and hospital sitesin [place], [place], [place] and [place]. This disclosure is being madepursuant to the Care Everywhere program and may not contain all information available regarding this patient. Last updated 18.[facility] Allergies Active Allergy Reactions Criticality Noted Date [...] on file Legal Sex Female 8:13 AM CYBER ENGINEER Gender Identity Not on file Sexual Orientation Not on file Last Filed Vital Signs Vital Sign Reading Time Taken Comments Blood Pressure 117/57 07/15/2017 11:46 AM CYBER ENGINEER Pulse 74 07/15/2017 11:46 AM CYBER ENGINEER Temperature 36.6 C (97.8 F) 07/15/2017 9:51 AM CYBER ENGINEER Respiratory Rate 16 07/15/2017 11:46 AM CYBER ENGINEER Oxygen Saturation 97% 07/15/2017 11:46 AM CYBER ENGINEER Inhaled Oxygen Concentration - - Weight 67.1 kg (148 lb) 07/15/2017 9:51 AM CYBER ENGINEER Height 157.5 cm (5' 2) 07/15/2017 9:51 AM CYBER ENGINEER Body Mass Index 27.07 07/15/2017 9:51 AM CYBER ENGINEER Plan of Treatment Health Maintenance Due Date [...] season) 2024 DEPRESSION SCREENING 06/30/2024 INFLUENZA VACCINE (#1) 2025 HEPATITIS B VACCINE Aged Out No [...] this topic Medical Devices Implanted Type Area Senior Game Designer Device Identifier Shelf Expiration Date Model / Serial / Lot Lens Iol C Hpt Bcnvx Tecnis Protec Implanted:Qty: 1 on 07/15/2017 by Villa Magallanes MD at [facility] [employer] 02/06/2020 [id number] / / Insurance MEDICARE MEDICO Care Teams Editorial Manager Relationship Specialty Start Date End Date Ольга Cotton MD [address] [facility] [facility] [address] [place] [address] PCP - General Family Medicine 07/15/17
--- OUTSIDE RECORDS SUMMARY | 2025-01-11 10:05 | XMS_ITS | Continuity of Care Document ---
Author Organization [facility] Address [address] [place] [address] Phone Care Team Providers Care Content Manager Name Role Phone Tal Retana MD Unavailable Unavailable Allergies, Adverse Reactions, Alerts Substance Reaction Status Criticality No Known Allergies Active No Inform ation Medications Medication Instructions Dosage Effective Dates (start - stop) Status Comments sertraline 50 mg tablet take 1 tablet by oral route every day 50 MG - Active meloxicam 15 mg tablet take 1 tablet by oral route every day 15 MG - Active Procedures Procedure Date Refraction Eye Exam, New Patient Advance Directives Directive Yes / No Effective Date File Name No Information Encounters Encounter Description Practice Location Reason(s) For Visit Diagnoses Date Provider Providers Copied on Encounter [facility], [address] [place] [address] [address], [place], [place], [id number], [place] tel:[phone] SEC Marcelino POWELL Professional Dry eyes (chief complaint) Dry eyes, bilateralNucle ar sclerotic cataract of both eyes [address] [facility] [address], [place], [place], [address], [place]. tel:[phone] Referring Provider: Tal Carty, [address] [facility] [address], [place], [address] . tel:[phone] [facility], [address] [place] [address] [address], [place], [place], [id number], [place] tel:[phone] SEC [place] Professional No Information [address]. [address] [facility], [place], [place], [address], [place]. tel:[phone] Family History Family Member Type Diagnosis Age At Onset No Information Payers Payer name Insurance type Covered green party ID Authoriza tion(s) Medicare [facility] [id number] [employer] Insurance CI [id number] Social History Type Description Quantity Date Captured [...]
--- OUTSIDE RECORDS SUMMARY | 2025-01-11 10:05 | XMS_ITS | Clinical Summary ---
Author Organization [facility] Address [address] [place] [address] Care Team Providers Care Stunt Person Name Role Phone Unavailable Primary Care Provider Unavailabl e Social History Tobacco Use Types Packs/Day Years Used Date Smoking Tobacco: Never Assessed Comments Unknown Sex and Gender Information Value Date Recorded Sex Assigned at Not on file Legal Sex Female 1:58 PM CDT Gender Identity Not on file Sexual Orientation Not on file Plan of Treatment Health Maintenance Due Date Last Done Comments DTaP, Tdap and Td Vaccines ( 1 - Tdap) 02/18/1960 Pneumococcal Vaccine: 50+ Ye ars (1 of 1 - PCV) 1991 Zoster Vaccines (1 of 2) 1991 Dexa Scan (General) 2006 RSV Immunization or 60+ Years (1 - 1-dose 75+ series) 02/18/2016 COVID-19 Vaccine (2023-2 5 season) 2024 Meningococcal B Vaccine Aged Out No l onger eligible based on patient's age to complete this topic Meningococcal Vaccine Aged Out No shanta lavell eligible based on patient's age to complete this topic RSV Immunizations Under 20 Months Aged Out No longer eligible based on patient's age to complete this topic
== END 2025-01-11 09:54 | disposition home or self-care (01) ==
LOC: ANHIMG 09:56
PROVIDERS: PCP Family Medicine; Visit Provider Physician Assistant Medical
DX: R55 Syncope and collapse (principal); R42 Dizziness and giddiness
CPT/HCPCS: 70450

== ENCOUNTER 2025-02-17 13:01 | Outpatient (CLI) | payer MEDICARE, SELFPAY ==
--- NOTE | ~2025-02-17 | US_ITS ---
EXAMINATION: US carotid duplex BI DATE: 02/17/2025 13:37 INDICATION: Dizziness TECHNIQUE: Grayscale, color Doppler, and pulsed Doppler images of the cervical carotid arteries were obtained. The degree of vessel stenosis is placed in one of the following categories: normal, <50%, 50-69%, >=70% but less than near- occlusion, near-occlusion, or total occlusion. Note that percent stenosis relative to normal distal artery lumen diameter is indirectly measured from velocity measurements as described by Vimal, et al. Radiology 2003; 229:340-346. Notes: Normal: Peak systolic velocity <125 centimeters/sec and no plaque <50%. Peak systolic velocity <125 (EDV <40; ICA/CCA PSV ratio <2.0; used these factors only a tandem lesions or low cardiac output or contralateral disease) 50-69 %: PSV 125-230 (EDV 40-100; ratio 2-4) >= 70% but less than near occlusion: PSV greater than 230 (EDV > 100; ratio> 4.0) Near Occlusion: PSV that is variable; markedly narrowed lumen Occlusion: Absent flow on color/spectral Doppler and no lumen on orona scale. COMPARISON: None. FINDINGS: RIGHT: The right common carotid artery (CCA) peak systolic velocity (PSV) is 117 cm/s. The right internal carotid artery (ICA) PSV is 146 cm/s. The right ICA end- diastolic velocity (EDV) is 20 cm/s. The right ICA/CCA PSV ratio is 1.2. The external carotid artery (ECA) PSV is 166 cm/s. There is antegrade flow in the right vertebral artery. LEFT: The left CCA PSV is 109 cm/s. The left ICA PSV is 152 cm/s. The left ICA EDV is 26 cm/s. The left ICA/CCA PSV ratio is 1.4. The ECA PSV is 143 cm/s. There is antegrade flow in the left vertebral artery. IMPRESSION: 1. 50-69% stenosis in the right internal carotid artery by sonographic criteria. 2. 50-69% stenosis in the left internal carotid artery by sonographic criteria. Reviewed, dictated and finalized at location O. IMPRESSION: 1. 50-69% stenosis in the right internal carotid artery by sonographic criteria . 2. 50-69% stenosis in the left internal carotid artery by sonographic criteria.
--- OUTSIDE RECORDS SUMMARY | 2025-02-17 13:18 | XMS_ITS | Clinical Summary ---
Author Organization [facility] Address [address] [place] [address] Care Team Providers Care Computerized Table Cutter Name Role Phone Ольга Cotton MD Primary Care Provider Jesus gutierrez Source Comments [facility],non-owned Affiliates and Associated Physician Practices is amultiple site organization consisting of ambulatory clinics and hospital sitesin [place], [place], [place] and [place]. This disclosure is being madepursuant to the Care Everywhere program and may not contain all information available regarding this patient. Last updated 18.[facility] Allergies Active Allergy Reactions Criticality Noted Date [...] on file Legal Sex Female 8:13 AM ROUTE CDL DRIVER Gender Identity Not on file Sexual Orientation Not on file Last Filed Vital Signs Vital Sign Reading Time Taken Comments Blood Pressure 117/57 07/15/2017 11:46 AM ROUTE CDL DRIVER Pulse 74 07/15/2017 11:46 AM ROUTE CDL DRIVER Temperature 36.6 C (97.8 F) 07/15/2017 9:51 AM ROUTE CDL DRIVER Respiratory Rate 16 07/15/2017 11:46 AM ROUTE CDL DRIVER Oxygen Saturation 97% 07/15/2017 11:46 AM ROUTE CDL DRIVER Inhaled Oxygen Concentration - - Weight 67.1 kg (148 lb) 07/15/2017 9:51 AM ROUTE CDL DRIVER Height 157.5 cm (5' 2) 07/15/2017 9:51 AM ROUTE CDL DRIVER Body Mass Index 27.07 07/15/2017 9:51 AM ROUTE CDL DRIVER Plan of Treatment Health Maintenance Due Date [...] this topic Medical Devices Implanted Type Area Chiropractic Practice Manager Device Identifier Shelf Expiration Date Model / Serial / Lot Lens Iol C Hpt Bcnvx Tecnis Protec Implanted:Qty: 1 on 07/15/2017 by Villa Magallanes MD at [facility] [employer] 02/06/2020 [id number] / / Insurance MEDICARE MEDICO Care Teams Computerized Table Cutter Relationship Specialty Start Date End Date Ольга Cotton MD [address] [place] [address] PCP - General Family Medicine 07/15/17
--- OUTSIDE RECORDS SUMMARY | 2025-02-17 13:18 | XMS_ITS | Clinical Summary ---
Author Organization [facility] Address [address] [place] [address] Care Team Providers Care Gallery Or Museum Guide Name Role Phone Unavailable Primary Care Provider [...]
--- OUTSIDE RECORDS SUMMARY | 2025-02-17 13:18 | XMS_ITS | Encounter Summary ---
Author Organization [facility] Address [address] [place] [address] Care Team Providers Care Pedigree Tracer Name Role Phone Unavailable Primary Care Provider Unavailabl e Encounter Details Date Type Department Care Team (Late st Contact Info) Description 04/25/2017 Abstract [facility] CONVERSION [address] [place] [address] , Generic Conversion, Social History [...]
== END 2025-02-17 13:02 | disposition home or self-care (01) ==
PROVIDERS: PCP Family Medicine; Visit Provider Physician Assistant Medical
DX: R55 Syncope and collapse (principal); I65.23 Occlusion and stenosis of bilateral carotid arteries
CPT/HCPCS: 93880

== ENCOUNTER 2025-06-28 09:43 | Outpatient (CLI) | payer MEDICARE, SELFPAY ==
--- OUTSIDE RECORDS SUMMARY | 2025-06-28 10:00 | XMS_ITS | Clinical Summary ---
Author Organization [facility] Address [address] [place] [address] Care Team Providers Care Designer Writer Name Role Phone Unavailable Primary Care Provider [...] - 1-dose 75+ series) 02/18/2016 COVID-19 Vaccine (2024-2 6 season) 2025 Influenza Adult (#1) 2025 Hepatitis A Vaccines Aged Out No long er eligible based on patient's age to complete this topic Meningococcal B Vaccine Aged Out No l onger eligible based on patient's age to complete this topic Meningococcal Vaccine Aged Out No shanta lavell eligible based on patient's age to complete this topic RSV Immunizations Under 20 Months Aged Out No longer eligible based on patient's age to complete this topic
--- OUTSIDE RECORDS SUMMARY | 2025-06-28 10:00 | XMS_ITS | Clinical Summary ---
Author Organization [facility] Address [address] [place] [address] Care Team Providers Care Pass Worker Name Role Phone Ольга Cotton MD Primary Care Provider Jesus gutierrez Source Comments [facility],non-owned Affiliates and Associated Physician Practices is amultiple site organization consisting of ambulatory clinics and hospital sitesin [place], [place], [place] and [place]. This disclosure is being madepursuant to the Care Everywhere program and may not contain all information available regarding this patient. 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 Gender Identity Not on file Sexual Orientation Not on file Last Filed Vital Signs Vital Sign Reading Time Taken Comments Blood Pressure 117/57 07/15/2017 11:46 AM CITY SUPERINTENDENT Pulse 74 07/15/2017 11:46 AM CITY SUPERINTENDENT Temperature 36.6 C (97.8 F) 07/15/2017 9:51 AM CITY SUPERINTENDENT Respiratory Rate 16 07/15/2017 11:46 AM CITY SUPERINTENDENT Oxygen Saturation 97% 07/15/2017 11:46 AM CITY SUPERINTENDENT Inhaled Oxygen Concentration - - Weight 67.1 kg (148 lb) 07/15/2017 9:51 AM CITY SUPERINTENDENT Height 157.5 cm (5' 2) 07/15/2017 9:51 AM CITY SUPERINTENDENT Body Mass Index 27.07 07/15/2017 9:51 AM CITY SUPERINTENDENT Plan of Treatment Health Maintenance Due Date Last Done Comments BONE DENSITY TESTING 1941 DTAP/TDAP/TD VACCINES (1 - Tdap) 02/18/1960 PNEUMOCOCCAL VACCINE 50+ (1 of 1 - PCV) 1991 ZOSTER VACCINE (1 of 2) 1991 Respiratory Syncytial Virus (RSV) Vaccine Pt: or over 60 yrs (1 - 1-dose 75+ series) 02/18/2016 DEPRESSION SCREENING 06/30/2024 COVID-19 VACCINE (1 - 2024-2 6 season) 2025 INFLUENZA VACCINE (#1) 2025 HEPATITIS B VACCINE [...] this topic Medical Devices Implanted Type Area Automotive Refinish Technician Device Identifier Shelf Expiration Date Model / Serial / Lot Lens Iol C Hpt Bcnvx Tecnis Protec Implanted:Qty: 1 on 07/15/2017 by Villa Magallanes MD at [facility] [employer] 02/06/2020 [id number] / / Insurance MEDICARE MEDICO Care Teams Pass Worker Relationship Specialty Start Date End Date Ольга Cotton MD [address] [facility] [address] [address] [place] [address] PCP - General Family Medicine 07/15/17
--- OUTSIDE RECORDS SUMMARY | 2025-06-28 10:00 | XMS_ITS | Encounter Summary ---
Author Organization [facility] Address [address] [place] [address] Care Team Providers Care Multiple Effect Evaporator Operator Name Role Phone Unavailable Primary Care Provider Unavailabl e Encounter Details Date Type Department Care Team (Late st Contact Info) Description 04/25/2017 Abstract [facility] CONVERSION [address] [place] [address] , Generic Conversion, Social History [...]
== END 2025-06-28 09:44 | disposition home or self-care (01) ==
LOC: ANHAUDIO 09:44
PROVIDERS: PCP Family Medicine; Visit Provider Otolaryngology Otolaryngology/Facial Plastic Surgery
DX: H91.93 Unspecified hearing loss, bilateral (principal)
CPT/HCPCS: 92557; 92567